=== PATIENT | female | born 1990 | race Two or more races ===

== ENCOUNTER 2017-07-31 13:07 | Outpatient (CLI) | payer OTHER | END 2017-07-31 13:30 | disposition home or self-care (01) | LOC: RX STUDY 13:07 | DX: N70.11 Chronic salpingitis (principal) ==

== ENCOUNTER 2018-03-29 12:00 | Outpatient (CLI) | payer OTHER | END 2018-03-29 12:03 | disposition home or self-care (01) | LOC: SONOGRAMA 12:00 | DX: N60.01 Solitary cyst of right breast (principal) ==

== ENCOUNTER 2021-10-28 11:32 | Outpatient (CLI) | payer OTHER ==
[2021-11-04] MEDS ORDERED: HUMULIN N100 UNIT/2 SUBCUTANEO (09:51)
[2021-11-04] MEDS ORDERED: NOVOLIN N100 UNIT/1 SUBCUTANEO (15:05)
[2021-11-04] MEDS ORDERED: ALCOHOL PADS1 EACH TOP (15:08)
[2021-11-04] MEDS ORDERED: INSULIN SYRING1 EA29 SUBCUTANEO (15:08)
== END 2021-10-28 12:20 | disposition home or self-care (01) ==
LOC: PRENATAL 11:32
PROVIDERS: ATTEND Obstetrics & Gynecology Maternal & Fetal Medicine
DX: Z76.1 Encounter for health supervision and care of foundling (principal)

== ENCOUNTER 2021-12-01 14:42 | Outpatient (CLI) | payer OTHER ==
[~2021-12-01 14:42] MED LIST: ALCOHOL PADS1 EACH TOP; HUMULIN N100 UNIT/2 SUBCUTANEO; INSULIN SYRING1 EA29 SUBCUTANEO; NOVOLIN N100 UNIT/1 SUBCUTANEO
== END 2021-12-01 16:01 | disposition home or self-care (01) ==
LOC: PRENATAL 14:42
PROVIDERS: ATTEND Obstetrics & Gynecology Maternal & Fetal Medicine
DX: O36.80X0 Pregnancy with inconclusive fetal viability, not applicable or unspecified (principal); Z36.0 Encounter for antenatal screening for chromosomal anomalies; O24.319 Unspecified pre-existing diabetes mellitus in pregnancy, unspecified trimester; Z3A.12 12 weeks gestation of pregnancy

== ENCOUNTER 2022-02-03 12:57 | Outpatient (CLI) | payer OTHER | END 2022-02-03 15:14 | disposition home or self-care (01) | LOC: PRENATAL 12:57 | PROVIDERS: ATTEND Obstetrics & Gynecology Maternal & Fetal Medicine | DX: O35.9XX0 Maternal care for (suspected) fetal abnormality and damage, unspecified, not applicable or unspecified (principal); O35.3XX0 Maternal care for (suspected) damage to fetus from viral disease in mother, not applicable or unspecified; O24.319 Unspecified pre-existing diabetes mellitus in pregnancy, unspecified trimester; O99.210 Obesity complicating pregnancy, unspecified trimester; Z3A.21 21 weeks gestation of pregnancy ==

== ENCOUNTER 2022-03-16 15:01 | Outpatient (CLI) | payer OTHER | END 2022-03-16 16:39 | disposition home or self-care (01) | LOC: PRENATAL 15:01 | PROVIDERS: ATTEND Obstetrics & Gynecology Maternal & Fetal Medicine | DX: O26.849 Uterine size-date discrepancy, unspecified trimester (principal); O24.319 Unspecified pre-existing diabetes mellitus in pregnancy, unspecified trimester; O99.210 Obesity complicating pregnancy, unspecified trimester; Z3A.27 27 weeks gestation of pregnancy ==

== ENCOUNTER 2022-04-17 13:19 | Outpatient (CLI) | payer OTHER | END 2022-04-17 14:45 | disposition home or self-care (01) | LOC: PRENATAL 13:19 | PROVIDERS: ATTEND Obstetrics & Gynecology Maternal & Fetal Medicine | DX: O26.849 Uterine size-date discrepancy, unspecified trimester (principal); O99.210 Obesity complicating pregnancy, unspecified trimester; Z3A.32 32 weeks gestation of pregnancy ==

== ENCOUNTER 2022-05-15 13:47 | Outpatient (CLI) | payer OTHER | END 2022-05-15 15:50 | disposition home or self-care (01) | LOC: PRENATAL 13:47 | PROVIDERS: ATTEND Obstetrics & Gynecology Maternal & Fetal Medicine | DX: O26.849 Uterine size-date discrepancy, unspecified trimester (principal); O99.210 Obesity complicating pregnancy, unspecified trimester; O36.8199 Decreased fetal movements, unspecified trimester, other fetus; O24.319 Unspecified pre-existing diabetes mellitus in pregnancy, unspecified trimester; Z3A.36 36 weeks gestation of pregnancy ==

== ENCOUNTER 2022-05-26 11:08 | Inpatient (IN) | payer OTHER ==
[~2022-05-26] VITALS: Ht 182.9 cm; Wt 3.6 kg
[2022-05-30] MEDS ORDERED: NOVOLIN R100 UNIT/1 SUBCUTANEO ×2 (09:37→09:38)
[2022-05-30] MEDS ORDERED: PRENATAL TABLE1 EAC1 PO (09:39)
[2022-05-30] MEDS ORDERED: NOVOLIN N100 UNIT/1 SUBCUTANEO (09:40)
[2022-06-01] MEDS ORDERED: METFORMIN HCL1000 M3 (09:41)
== END 2022-06-01 13:38 | disposition home or self-care (01) | DRG 788 ==
LOC: LDR 05-30 07:29 → OB/GYN 05-30 13:15 → O/R 05-30 16:49 → OB/GYN 05-30 20:55
PROVIDERS: ADMIT Obstetrics & Gynecology; ATTEND Obstetrics & Gynecology
PROC: 3E033VJ Introduction of Other Hormone into Peripheral Vein, Percutaneous Approach (ICD-10-PCS; 2022-05-30)
PROC: 3E0P7VZ Introduction of Hormone into Female Reproductive, Via Natural or Artificial Opening (ICD-10-PCS; 2022-05-30)
PROC: 4A1HXCZ Monitoring of Products of Conception, Cardiac Rate, External Approach (ICD-10-PCS; 2022-05-30)
PROC: 10D00Z1 Extraction of Products of Conception, Low, Open Approach (ICD-10-PCS; principal; 2022-05-30 16:00)
DX: O33.8 Maternal care for disproportion of other origin (principal); Z3A.38 38 weeks gestation of pregnancy; Z37.0 Single live birth; Z20.822 Contact with and (suspected) exposure to COVID-19